=== PATIENT | female | born 1945 | race Hispanic/Latino ===

== ENCOUNTER 2020-01-20 16:40 | Emergency (ER) | payer MEDICARE ==
[2020-01-20] MEDS ORDERED: LORazepam 2 MG/ML VIAL ONE (16:43)
[2020-01-20] MEDS ORDERED: levETIRAcetam 1000 MG/NS 0.75% 1,000 MG/100 ML BAG IV ONE ×2 (16:45→16:56)
[2020-01-20] MEDS ORDERED: LORazepam 2 MG/ML VIAL IV ONE (16:56)
[2020-01-20] MEDS ORDERED: SODIUM CHLORIDE 0.9% 1000 ML 1,000 ML IV ONE (17:02)
[2020-01-20] MEDS ORDERED: ACETAMINOPHEN 650 MG RECT SUPP PR ONE (17:08)
--- NOTE | 2020-01-20 17:11 | Emergency Department Report ---
ED Seizure HPI - General Chief Complaint: Seizure Stated Complaint: SEIZURE Time Seen by Provider: 01/20/20 16:55 Source: EMS, old records reviewed (Last ED visit was 2015 with no more recent medical record available for review) Mode of arrival: Stretcher Limitations: Other - History of Present Illness Initial Comments: 74-year-old female with a past medical history of brain tumor status post surgical resection and current chemotherapy treatment presents to the hospital with status epilepticus. came into the home and found patient seizing a nd called EMS at approximately 4:11 PM. They were at the scene at 4:17 PM and patient was still seizing upon their arrival. They obtained IV access and administer Versed 5 mg. Patient stopped seizing for approximately 30 minutes but did not regain consciousness and started to seize again. Upon arrival at 16:40 patient is noted to have seizure activity involving the upper body with rhythmic jerking of the left arm. Upon arrival 2 mg of IV Ativan administered and Keppra initiated. Patient did stop seizing after Ativan 2 mg IV and is currently postictal. EMS states has COPD and was anxious upon their arrival and they were able to obtain a limited amount of information about other past medical history and current meds. Patient apparently follows with [facility]. Collateral information obtained from patient's at approximately 6:50 PM. states that patient was lying on a couch and when he went outside in the yard for 1-1/2-hour. Upon return back in the health he noticed that patient was confused and minimally responsive. She appeared to be "vibrating" then went into full-blown seizure activity and therefore he called EMS. He denies that patient has had any recent complaints or fevers. Denies previous history of seizures. Collateral information obtained from daughter who is also the power of commercial litigation attorney at 7:01 PM. Daughter's name is Ivonne Bello with phone number [phone]. 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 She has been having symptoms of blurred v ision and decreased vision since June. Tumors were identified on MRI. She received oral and IV chemo every other week and just completed her fourth treatment. Wednesday through Wednesday she received IV chemo then the next 3 days she receives oral leucovorin, she takes a week break then start sodium bicarb 3 days before being readmitted to initiate chemotherapy treatment. She states that patient does not have any previous history of seizures. She does not currently prescribed prophylactic seizure medication although she typically receives prophylactic seizure medication while admitted to the hospital. pt has not other baseline neurologic deficit secondary to her brain tumors other than visual changes which have improved with treatment. She is alert oriented x3 without any deficits to her baseline. Pt has 2 nonoperative brain tumors due to location but a surgical procedure was performed as per daughter Neurosurgeon is Dr Anderson Oncologist Dr Plascencia - Related Data Previous Rx's Medication Instructions Recorded Last Taken Type HYDROcodone/APAP 5-325 [Questa 1 each PO Q6HR PRN #20 tablet 11/29/13 Unknown Rx 5/325] Ibuprofen [Motrin 800 MG tab] 800 mg PO Q8H #45 tablet 11/29/13 Unknown Rx methOCARBAMOL [Robaxin] 750 mg PO Q8H PRN #21 tablet 11/29/13 Unknown Rx Cyclobenzaprine [Flexeril] 10 mg PO TID PRN #20 tablet 04/18/15 Unknown Rx Ibuprofen [Motrin 800 MG tab] 800 mg PO Q8HR PRN #21 tablet 04/18/15 Unknown Rx Allergies Allergy/AdvReac Type Severity Reaction Status Date / Time No Known Allergies Allergy Verified 01/20/20 16:51 ED Review of Systems ROS: Stated complaint: SEIZURE Other details as noted in HPI Comment: Unobtainable due to pts medical conditions ED Past Medical Hx - Past Medical History Hx Diabetes: Yes Hx Dementia: Yes Additional medical history: high cholesterol/ BRAIN TUMOR - Surgical History Additional Surgical History: 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 13 minor surgeries - Social History Smoking Status: Former Smoker Substance Use Type: None - Medications Home Medications: Home Medications Medication Instructions Recorded Confirmed Last Taken Type HYDROcodone/APAP 5-325 [Questa 1 each PO Q6HR PRN #20 tablet 11/29/13 Unknown Rx 5/325] Ibuprofen [Motrin 800 MG tab] 800 mg PO Q8H #45 tablet 11/29/13 Unknown Rx methOCARBAMOL [Robaxin] 750 mg PO Q8H PRN #21 tablet 11/29/13 Unknown Rx Cyclobenzaprine [Flexeril] 10 mg PO TID PRN #20 tablet 04/18/15 Unknown Rx Ibuprofen [Motrin 800 MG tab] 800 mg PO Q8HR PRN #21 tablet 04/18/15 Unknown Rx ED Physical Exam - General Limitations: Altered Mental Status, Other - Other Other exam information: General: Unresponsive Head: Atraumatic Eyes: normal appearance, pupils equal reactive to light ENT: Moist mucous membranes Neck: Normal appearance, no midline tenderness Chest: Clear to auscultation bilaterally, mild tachypnea CV: Tachycardic regular rhythm Abdomen: Soft, normal bowel sounds, nontender, nondistended, no rebound or guarding Back: Normal inspection Extremity: Normal inspection, full range of motion Neuro: Unresponsive, actively seizing, rhythmic jerking of left arm and left- sided head Psych: Appropriate behavior Skin: No rash ED Course Vital Signs 01/20/20 01/20/20 01/20/20 16:53 18:05 19:30 Temperature 102.4 F H Pulse Rate 130 H 128 H Respiratory 25 H 25 H Rate Blood Pressure 170/72 176/75 [Right] O2 Sat by Pulse 98 96 Oximetry 01/20/20 01/20/20 20:00 22:00 Temperature Pulse Rate 124 H 134 H Respiratory Rate Blood Pressure 172/71 169/88 [Right] O2 Sat by Pulse 95 96 Oximetry - Reevaluation(s) Reevaluation #1: 01/20/20 19:00 Patient still sedated but more agitated with more movement requiring soft wrist restraints so that she does not pull out IV or monitor leads. I am hesitant to resedate patient because awaiting improvement in mental status since she is post ictal and has received benzos. Head of bed is elevated greater than 30 degrees. 01/20/20 21:26 daughter updated that pt is going to be transferred to [place]. 01/20/20 21:28 repeat lactic acid normal 01/20/20 23:10 i was informed that pt did not have urine collected and didn't receive ampicillin prior to patient transfer. Pt as already left the department. I was also informed that patient would intermittently respond verbally when spoken to. - Consultations Consultation #1: 01/20/20 19:06 case d/w [place] transfer service case d/w Dr Monica tan who has accepted patient for transfer. 01/20/20 20:01 Case d/w Dr Pham neuro cash management coordinator with [facility] who has accepted patient for transfer - ABG Interpretation Ph: 7.384 PCO2: 28.9 PO2: 91.6 Bicarbonate: 16.9 Interpretation: metabolic acidosis, other (Compensated metabolic acidosis) Additional Comments: Performed on 3 L nasal cannula 32% FiO2 ED Medical Decision Making - Lab Data Result diagrams: 01/20/20 16:57 01/20/20 17:00 Lab Results 01/20/20 01/20/20 01/20/20 Range/Units 16:57 17:00 17:00 WBC 11.3 H (4.5-11.0) K/mm3 RBC 3.61 L (3.65-5.03) M/mm3 Hgb 11.4 (10.1-14.3) gm/dl Hct 33.8 (30.3-42.9) % MCV 94 (79-97) fl MCH 32 (28-32) pg MCHC 34 (30-34) % RDW 16.3 H (13.2-15.2) % Plt Count 333 (140-440) K/mm3 Lymph % (Auto) 9.3 L (13.4-35.0) % Banner % (Auto) 7.7 H (0.0-7.3) % Eos % (Auto) 1.5 (0.0-4.3) % Baso % (Auto) 2.4 H (0.0-1.8) % Lymph # (Auto) 1.1 L (1.2-5.4) K/mm3 Banner # (Auto) 0.9 H (0.0-0.8) K/mm3 Eos # (Auto) 0.2 (0.0-0.4) K/mm3 Baso # (Auto) 0.3 H (0.0-0.1) K/mm3 Seg Neutrophils % 79.1 H (40.0-70.0) % Seg Neutrophils # 8.9 H (1.8-7.7) K/mm3 ABG pH (7.350-7.450) pH Units POC ABG pCO2 (32.0-48.0) mmHg ABG pCO2 mm Hg POC ABG pO2 (83-108) mmHg ABG pO2 (80.0-90.0) mm Hg POC ABG HCO3 ABG HCO3 (20.0-26.0) mmol/L ABG O2 Saturation (95.0-99.0) % ABG O2 Content (0.0-44) POC ABG Base Excess ABG Base Excess (-2.0-3.0) mmol/L ABG Hemoglobin (12.0-16.0) gm/dl ABG Oxyhemoglobin (94-98) ABG Carboxyhemoglobin (0.0-5.0) % ABG Methemoglobin (0.0-1.5) % ABG Sodium (136.0-145.0) mmol/L ABG Potassium (3.40-4.50) mmol/L ABG Chloride (98-107) mmol/L ABG Glucose (65-95) mg/dL VBG pH (7.320-7.420) Oxyhemoglobin (95.0-99.0) % Carboxyhemoglobin (0.5-1.5) FiO2 % Sodium 136 L (137-145) mmol/L Potassium 2.9 L* (3.6-5.0) mmol/L Chloride 92.5 L (98-107) mmol/L Carbon Dioxide 18 L (22-30) mmol/L Anion Gap 28 mmol/L BUN 7 (7-17) mg/dL Creatinine 1.0 (0.6-1.2) mg/dL Estimated GFR 54 ml/min BUN/Creatinine Ratio 7 % Glucose 243 H (65-100) mg/dL POC Glucose (70-105) mg/dL Lactic Acid 12.60 H* (0.7-2.0) mmol/L Calcium 9.0 (8.4-10.2) mg/dL Magnesium (1.7-2.3) mg/dL Total Bilirubin 0.50 (0.1-1.2) mg/dL AST 20 (5-40) units/L ALT 14 (7-56) units/L Alkaline Phosphatase 40 (35-129) units/L Total Creatine Kinase (30-135) units/L NT-Pro-B Natriuret Pep (0-900) pg/mL Total Protein 6.2 L (6.3-8.2) g/dL Albumin 3.5 L (3.9-5) g/dL Albumin/Globulin Ratio 1.3 % Arterial Blood Glucose (65-95) mg/dL Arterial Blood Ionized Calcium (4.6-5.3) mg/dL 01/20/20 01/20/20 01/20/20 Range/Units 17:00 17:00 17:00 WBC (4.5-11.0) K/mm3 RBC (3.65-5.03) M/mm3 Hgb (10.1-14.3) gm/dl Hct (30.3-42.9) % MCV (79-97) fl MCH (28-32) pg MCHC (30-34) % RDW (13.2-15.2) % Plt Count (140-440) K/mm3 Lymph % (Auto) (13.4-35.0) % Banner % (Auto) (0.0-7.3) % Eos % (Auto) (0.0-4.3) % Baso % (Auto) (0.0-1.8) % Lymph # (Auto) (1.2-5.4) K/mm3 Banner # (Auto) (0.0-0.8) K/mm3 Eos # (Auto) (0.0-0.4) K/mm3 Baso # (Auto) (0.0-0.1) K/mm3 Seg Neutrophils % (40.0-70.0) % Seg Neutrophils # (1.8-7.7) K/mm3 ABG pH 7.396 (7.350-7.450) pH Units POC ABG pCO2 (32.0-48.0) mmHg ABG pCO2 24.1 mm Hg POC ABG pO2 (83-108) mmHg ABG pO2 103.1 H (80.0-90.0) mm Hg POC ABG HCO3 ABG HCO3 14.4 L (20.0-26.0) mmol/L ABG O2 Saturation 97.9 (95.0-99.0) % ABG O2 Content 15.9 (0.0-44) POC ABG Base Excess ABG Base Excess -8.7 L (-2.0-3.0) mmol/L ABG Hemoglobin 12.2 (12.0-16.0) gm/dl ABG Oxyhemoglobin (94-98) ABG Carboxyhemoglobin 5.4 H (0.0-5.0) % ABG Methemoglobin 0.6 (0.0-1.5) % ABG Sodium (136.0-145.0) mmol/L ABG Potassium (3.40-4.50) mmol/L ABG Chloride (98-107) mmol/L ABG Glucose (65-95) mg/dL VBG pH 7.396 (7.320-7.420) Oxyhemoglobin 92.1 L (95.0-99.0) % Carboxyhemoglobin (0.5-1.5) FiO2 21 % Sodium (137-145) mmol/L Potassium (3.6-5.0) mmol/L Chloride (98-107) mmol/L Carbon Dioxide (22-30) mmol/L Anion Gap mmol/L BUN (7-17) mg/dL Creatinine (0.6-1.2) mg/dL Estimated GFR ml/min BUN/Creatinine Ratio % Glucose (65-100) mg/dL POC Glucose (70-105) mg/dL Lactic Acid (0.7-2.0) mmol/L Calcium (8.4-10.2) mg/dL Magnesium 1.50 L (1.7-2.3) mg/dL Total Bilirubin (0.1-1.2) mg/dL AST (5-40) units/L ALT (7-56) units/L Alkaline Phosphatase (35-129) units/L Total Creatine Kinase (30-135) units/L NT-Pro-B Natriuret Pep 318.9 (0-900) pg/mL Total Protein (6.3-8.2) g/dL Albumin (3.9-5) g/dL Albumin/Globulin Ratio % Arterial Blood Glucose (65-95) mg/dL Arterial Blood Ionized Calcium (4.6-5.3) mg/dL 01/20/20 01/20/20 01/20/20 Range/Units 17:00 17:10 17:24 WBC (4.5-11.0) K/mm3 RBC (3.65-5.03) M/mm3 Hgb (10.1-14.3) gm/dl Hct (30.3-42.9) % MCV (79-97) fl MCH (28-32) pg MCHC (30-34) % RDW (13.2-15.2) % Plt Count (140-440) K/mm3 Lymph % (Auto) (13.4-35.0) % Banner % (Auto) (0.0-7.3) % Eos % (Auto) (0.0-4.3) % Baso % (Auto) (0.0-1.8) % Lymph # (Auto) (1.2-5.4) K/mm3 Banner # (Auto) (0.0-0.8) K/mm3 Eos # (Auto) (0.0-0.4) K/mm3 Baso # (Auto) (0.0-0.1) K/mm3 Seg Neutrophils % (40.0-70.0) % Seg Neutrophils # (1.8-7.7) K/mm3 ABG pH 7.384 (7.350-7.450) pH Units POC ABG pCO2 28.9 L (32.0-48.0) mmHg ABG pCO2 mm Hg POC ABG pO2 91.6 (83-108) mmHg ABG pO2 (80.0-90.0) mm Hg POC ABG HCO3 16.9 ABG HCO3 (20.0-26.0) mmol/L ABG O2 Saturation (95.0-99.0) % ABG O2 Content (0.0-44) POC ABG Base Excess -7.0 ABG Base Excess (-2.0-3.0) mmol/L ABG Hemoglobin 11.8 L (12.0-16.0) gm/dl ABG Oxyhemoglobin 96.0 (94-98) ABG Carboxyhemoglobin (0.0-5.0) % ABG Methemoglobin 0.3 (0.0-1.5) % ABG Sodium 134.3 L (136.0-145.0) mmol/L ABG Potassium 3.2 L (3.40-4.50) mmol/L ABG Chloride 100.0 (98-107) mmol/L ABG Glucose 263 H (65-95) mg/dL VBG pH (7.320-7.420) Oxyhemoglobin (95.0-99.0) % Carboxyhemoglobin 0.6 (0.5-1.5) FiO2 32 % Sodium (137-145) mmol/L Potassium (3.6-5.0) mmol/L Chloride (98-107) mmol/L Carbon Dioxide (22-30) mmol/L Anion Gap mmol/L BUN (7-17) mg/dL Creatinine (0.6-1.2) mg/dL Estimated GFR ml/min BUN/Creatinine Ratio % Glucose (65-100) mg/dL POC Glucose 253 H (70-105) mg/dL Lactic Acid (0.7-2.0) mmol/L Calcium (8.4-10.2) mg/dL Magnesium (1.7-2.3) mg/dL Total Bilirubin (0.1-1.2) mg/dL AST (5-40) units/L ALT (7-56) units/L Alkaline Phosphatase (35-129) units/L Total Creatine Kinase 22 L (30-135) units/L NT-Pro-B Natriuret Pep (0-900) pg/mL Total Protein (6.3-8.2) g/dL Albumin (3.9-5) g/dL Albumin/Globulin Ratio % Arterial Blood Glucose 263 H (65-95) mg/dL Arterial Blood Ionized Calcium 4.5 L (4.6-5.3) mg/dL 01/20/20 Range/Units 20:15 WBC (4.5-11.0) K/mm3 RBC (3.65-5.03) M/mm3 Hgb (10.1-14.3) gm/dl Hct (30.3-42.9) % MCV (79-97) fl MCH (28-32) pg MCHC (30-34) % RDW (13.2-15.2) % Plt Count (140-440) K/mm3 Lymph % (Auto) (13.4-35.0) % Banner % (Auto) (0.0-7.3) % Eos % (Auto) (0.0-4.3) % Baso % (Auto) (0.0-1.8) % Lymph # (Auto) (1.2-5.4) K/mm3 Banner # (Auto) (0.0-0.8) K/mm3 Eos # (Auto) (0.0-0.4) K/mm3 Baso # (Auto) (0.0-0.1) K/mm3 Seg Neutrophils % (40.0-70.0) % Seg Neutrophils # (1.8-7.7) K/mm3 ABG pH (7.350-7.450) pH Units POC ABG pCO2 (32.0-48.0) mmHg ABG pCO2 mm Hg POC ABG pO2 (83-108) mmHg ABG pO2 (80.0-90.0) mm Hg POC ABG HCO3 ABG HCO3 (20.0-26.0) mmol/L ABG O2 Saturation (95.0-99.0) % ABG O2 Content (0.0-44) POC ABG Base Excess ABG Base Excess (-2.0-3.0) mmol/L ABG Hemoglobin (12.0-16.0) gm/dl ABG Oxyhemoglobin (94-98) ABG Carboxyhemoglobin (0.0-5.0) % ABG Methemoglobin (0.0-1.5) % ABG Sodium (136.0-145.0) mmol/L ABG Potassium (3.40-4.50) mmol/L ABG Chloride (98-107) mmol/L ABG Glucose (65-95) mg/dL VBG pH (7.320-7.420) Oxyhemoglobin (95.0-99.0) % Carboxyhemoglobin (0.5-1.5) FiO2 % Sodium (137-145) mmol/L Potassium (3.6-5.0) mmol/L Chloride (98-107) mmol/L Carbon Dioxide (22-30) mmol/L Anion Gap mmol/L BUN (7-17) mg/dL Creatinine (0.6-1.2) mg/dL Estimated GFR ml/min BUN/Creatinine Ratio % Glucose (65-100) mg/dL POC Glucose (70-105) mg/dL Lactic Acid 1.70 (0.7-2.0) mmol/L Calcium (8.4-10.2) mg/dL Magnesium (1.7-2.3) mg/dL Total Bilirubin (0.1-1.2) mg/dL AST (5-40) units/L ALT (7-56) units/L Alkaline Phosphatase (35-129) units/L Total Creatine Kinase (30-135) units/L NT-Pro-B Natriuret Pep (0-900) pg/mL Total Protein (6.3-8.2) g/dL Albumin (3.9-5) g/dL Albumin/Globulin Ratio % Arterial Blood Glucose (65-95) mg/dL Arterial Blood Ionized Calcium (4.6-5.3) mg/dL - EKG Data -: EKG Interpreted by Me EKG shows normal: sinus rhythm, ST-T waves (no ST elevation SD) Rate: tachycardia (130) - Radiology Data Radiology results: report reviewed CHEST 1 VIEW INDICATION / CLINICAL INFORMATION: Status epilepticus, fever. COMPARISON: None available. FINDINGS: SUPPORT DEVICES: None. HEART / MEDIASTINUM: No significant abnormality. LUNGS / PLEURA: Interstitial markings are prominent within appearance most likely mild interstitial pulmonary edema. No evidence of focal pneumonia or significant pleural effusion. No pneumothorax. ADDITIONAL FINDINGS: No significant additional findings. IMPRESSION: 1. Mild diffuse interstitial prominence, most likely interstitial pulmonary jonathan ma. CT head/brain wo con INDICATION / CLINICAL INFORMATION: 74 years Female; brain tumor, status epilepticus, fever. TECHNIQUE: Routine CT head without contrast. All CT scans at this location are performed using CT dose reduction for ALARA by means of automated exposure control. COMPARISON: None. FINDINGS: BRAIN / INTRACRANIAL CONTENTS: Craniotomy site seen in the right frontal region. Small area of presumed encephalomalacia seen in the adjacent superior frontal gyrus. Very thin subdural collection or dural thickening may be present on the left. No significant mass effect. Otherwise, no acute hemorrhage, mass effect, midline shift, hydrocephalus, or acute, large territorial infarct. Mild, nonspecific white matter disease noted. CRANIOCERVICAL JUNCTION: No significant abnormality. ORBITS: No significant abnormality of visualized orbits. SINUSES / MASTOIDS: No significant abnormality in the visualized paranasal sinuses or mastoid air cells. ADDITIONAL FINDINGS: None. IMPRESSION: 1. Postoperative changes in the right frontal region as described above. 2. There may be a very small, subacute subdural collection versus dural thickening on the left. Pre and postcontrast MRI of the brain may be helpful for further evaluation. 3. Otherwise, no focal mass, hemorrhage, hydrocephalus, or acute, large territorial infarct. - Medical Decision Making Patient presents to the hospital status epilepticus which aborted with Ativan with subsequent Keppra administration. Patient remains postictal and sedated with increased physical activity as time progresses. Patient does have a fever which could be secondary to prolonged seizure activity however, she also meets sepsis criteria. Patient did receive 30 mL/kg bolus of normal saline, FL tylenol, and empiric antibiotic treatment for meningitis and broad-spectrum ant ibiotic treatment with Rocephin, vancomycin, and ampicillin. Patient has mild hypokalemia and hypomagnesemia which have also been ordered for supplementation. Chest x-ray does not show infiltrate. Lactic acidosis noted likely secondary to prolonged seizure activity however, sepsis is also a possibility. ABG reveals a compensated metabolic acidosis with adequate oxygenation on 3 L nasal cannula. Seizure precautions were continued. Patient accepted for transfer to [facility] after discussion with her neurosurgeon and neuro cash management coordinator. CT head findings noted with likely possibility of dural thickening as opposed to subacute subdural hematoma. Neurosurgeon aware of radiology read however, we do not have a previous CT for comparison since patient has been previously imaged at [facility] Blood cultures pending Awaiting Walsh placement and UA as ordered. Covid test has been ordered however, we only collect Covid test once a day in the daytime and we do not currently have a rapid Covid test. Therefore, Covid test was not collected prior to patient transfer. repeat lactic acid normal Critical Care Time: Yes Critical care time in (mins) excluding proc time.: 35 Critical care attestation.: If time is entered above; I have spent that time in minutes in the direct care of this critically ill patient, excluding procedure time. ED Disposition Clinical Impression: Status epilepticus, B-cell lymphoma, Brain tumor, Fever, Hypokalemia, Hypomagnesemia, Lactic acidosis, Sepsis, Compensated metabolic acidosis Disposition: OP ADMIT IP TO THIS HOSP Is pt being admited?: Yes Condition: Stable Time of Disposition: 23:12 (transfered to [facility])
[2020-01-20] MEDS ORDERED: cefTRIAXone/NS 2 GM/100 ML 2 GM/100 ML BAG IV ONE (17:12)
--- NOTE | 2020-01-20 17:23 | XRay Report ---
CHEST 1 VIEW INDICATION / CLINICAL INFORMATION: Status epilepticus, fever. COMPARISON: None available. FINDINGS: SUPPORT DEVICES: None. HEART / MEDIASTINUM: No significant abnormality. LUNGS / PLEURA: Interstitial markings are prominent within appearance most likely mild interstitial p ulmonary edema. No evidence of focal pneumonia or significant pleural effusion. No pneumothorax. ADDITIONAL FINDINGS: No significant additional findings. IMPRESSION: 1. Mild diffuse interstitial prominence, most likely interstitial pulmonary edema. Signer Name: Noemi Fiore MD Signed: 01/20/2020 5:18 PM Workstation Name: [id number]
[2020-01-20 17:30] LABS: ABG Base Excess -8.7 mmol/L (-2.0-3.0); ABG HCO3 14.4 mmol/L (20.0-26.0); ABG Methemoglobin 0.6 % (0.0-1.5); ABG Oxygen Saturation 97.9 % (95.0-99.0); ABG PCO2 24.1 mm Hg; ABG PH 7.396 pH Units (7.350-7.450); ABG PO2 103.1 mm Hg (80.0-90.0); VEN PH 7.396 (7.320-7.420)
[2020-01-20 17:34] LABS: Basophils # (Auto) 0.3 K/mm3 (0.0-0.1); Basophils % (Auto) 2.4 % (0.0-1.8); Eosinophils # (Auto) 0.2 K/mm3 (0.0-0.4); Eosinophils % (Auto) 1.5 % (0.0-4.3); Hematocrit 33.8 % (30.3-42.9); Hemoglobin 11.4 gm/dl (10.1-14.3); Lymphocytes # (Auto) 1.1 K/mm3 (1.2-5.4); Lymphocytes % (Auto) 9.3 % (13.4-35.0); Mean Corpuscular HGB Conc 34 % (30-34); Mean Corpuscular Volume 94 fl (79-97); Monocytes # (Auto) 0.9 K/mm3 (0.0-0.8); Monocytes % (Auto) 7.7 % (0.0-7.3); Platelet Count 333 K/mm3 (140-440); Red Blood Count 3.61 M/mm3 (3.65-5.03); Red Cell Distribution Width 16.3 % (13.2-15.2)
[2020-01-20] MEDS ORDERED: SODIUM CHLORIDE 0.9% 1000 ML IV SOLN IV ONE (17:34)
[2020-01-20] MEDS ORDERED: ACETAMINOPHEN 325 MG RECT SUPP PR ONE (17:38)
[2020-01-20] MEDS ORDERED: VANCOMYCIN 1,500 MG in SODIUM CHLORIDE 0.9% 500 ML 500 ML IV ONE (17:45)
[2020-01-20 17:48] LABS: Albumin 3.5 g/dL (3.9-5)
[2020-01-20] MEDS ORDERED: MAGNESIUM SULFATE 2 GM/50 ML BAG IV ONE (17:50)
[2020-01-20] MEDS ORDERED: AMPICILLIN/NS 2 GM/100 ML 2 GM/100 ML BAG IV SCH (18:00)
[2020-01-20] MEDS ORDERED: POTASSIUM CHLORIDE 10 MEQ 10 MEQ/100 ML BAG IV SCH (18:00)
[2020-01-20] MEDS ORDERED: VANCOMYCIN PHARMACY TO DOSE IV SCH (18:00)
--- NOTE | 2020-01-20 18:08 | Cat Scan Report ---
CT head/brain wo con INDICATION / CLINICAL INFORMATION: 74 years Female; brain tumor, status epilepticus, fever. TECHNIQUE: Routine CT head without contrast. All CT scans at this location are performed using CT dos e reduction for ALARA by means of automated exposure control. COMPARISON: None. FINDINGS: BRAIN / INTRACRANIAL CONTENTS: Craniotomy site seen in the right frontal region. Small area of presum ed encephalomalacia seen in the adjacent superior frontal gyrus. Very thin subdural collection or dural thickening may be present on the left. No significant mass eff ect. Otherwise, no acute hemorrhage, mass effect, midline shift, hydrocephalus, or acute, large territori al infarct. Mild, nonspecific white matter disease noted. CRANIOCERVICAL JUNCTION: No significant abnormality. ORBITS: No significant abnormality of visualized orbits. SINUSES / MASTOIDS: No significant abnormality in the visualized paranasal sinuses or mastoid air austin ls. ADDITIONAL FINDINGS: None. IMPRESSION: 1. Postoperative changes in the right frontal region as described above. 2. There may be a very small, subacute subdural collection versus dural thickening on the left. Pre a nd postcontrast MRI of the brain may be helpful for further evaluation. 3. Otherwise, no focal mass, hemorrhage, hydrocephalus, or acute, large territorial infarct. Signer Name: Andrew Pantoja MD, III Signed: 01/20/2020 6:04 PM Workstation Name: [id number]
[2020-01-20 22:29] VITALS: BP 169/88
[2020-01-21] MEDS ORDERED: VANCOMYCIN 1,250 MG in SODIUM CHLORIDE 0.9% 250ML 250 ML IV SCH (18:00)
== END 2020-01-20 22:35 | disposition admitted as inpatient to this hospital (09) ==
LOC: ED 16:40
DX: G40.801 Other epilepsy, not intractable, with status epilepticus (principal); A41.89 Other specified sepsis; E87.6 Hypokalemia; E83.42 Hypomagnesemia; E87.2 Acidosis; D3A.098 Benign carcinoid tumors of other sites; C85.10 Unspecified B-cell lymphoma, unspecified site
CPT/HCPCS: 36415; 70450; 71045; 80053; 82140; 82550; 82803; 82805; 82962; 83735; 83880; 85025; 87040; 93005; 96365; 96367; 96368; 96375; 99291; J0290; J0696; J1953; J2060; J3370; J3475; J3480; J7030; J7040